=== PATIENT | female | born 1985 ===

== ENCOUNTER 2025-02-12 13:49 | Emergency (ER) | payer SELFPAY ==
--- OUTSIDE RECORDS SUMMARY | 2008-11-07 16:20 | XMS_ITS | Continuity of Care Document ---
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 Name Role Phone Unavailable Unavailable Unavailable Advance Directives Directive Yes / No Effective Date File Name No Information Encounters Encounter Description Practice Location Reason(s) For Visit Diagnoses Date Provider Providers Copied on Encounter [facility] , [address], [place], [place], [id number], [place] tel:[phone] Historic Immunization Location No Information No Information Family History Family Member Type Diagnosis Age At Onset No Information Immunizations Vaccine Date Status Comments HEPATITUS B 5 CC AGE 0-18 administered So urce: New Immunization Record Payers Payer name Insurance type Covered green party ID Authoriza tion(s) No Information Social History Type Description Quantity Date Captured Comments Sex Female Smoking Status No Information Chief Complaint And Reason For Visit No Information Reason For Referral Reason For Referral No Information History Of Present Illness Encounter Date Complaint History Of Prese nt Illness No Information Functional Status Date Functional Assessmen t No Information Instructions Date Instruction Additional Infor mation No Information Assessments Type Assessment Date No Information Patient Care Teams Name Effective Dates (start - stop) Status Members No Information
--- OUTSIDE RECORDS SUMMARY | 2008-11-07 16:20 | XMS_ITS | Continuity of Care Document ---
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 Cooperage Shop Supervisor Name Role Phone Unavailable Unavailable Unavailable Advance Directives Directive Yes / No Effective Date File Name No Information Encounters Encounter Description Practice Location Reason(s) For Visit Diagnoses Date Provider Providers Copied on Encounter [facility] , [address], [place], [place], [id number], [place] tel:[phone] Historic Immunization Location No Information No Information Family History Family Member Type Diagnosis Age At Onset No Information Immunizations Vaccine Date Status Comments HEPATITUS B 5 CC AGE 0-18 administered So urce: New Immunization Record Payers Payer name Insurance type Covered republican ID Authoriza tion(s) No Information Social History [...]
[2025-02-12 13:52] VITALS: BP 190/91; PULSE 106; RESP 18; TEMP 36.4; O2SAT 100
--- NOTE | 2025-02-12 14:51 | PC.NURSE ---
Pt ambulatory to exit using steady gait, NAD noted
== END 2025-02-12 15:48 | disposition left against medical advice (07) ==
DX: M79.602 Pain in left arm (principal)
CPT/HCPCS: 99199